=== PATIENT | female | born 1970 | race Asian ===

== ENCOUNTER 2018-01-18 10:56 | Emergency (ER) | payer SELFPAY ==
[~2018-01-18] VITALS: Ht 167.6 cm; Wt 68.0 kg
[2018-01-18] MEDS ORDERED: MULT-1203 PO (11:22)
[2018-01-18 13:56] VITALS: BP 115/71
== END 2018-01-18 13:57 | disposition home or self-care (01) ==
LOC: EMS 10:58
DX: S53.401A Unspecified sprain of right elbow, initial encounter (principal); S00.83XA Contusion of other part of head, initial encounter; S80.212A Abrasion, left knee, initial encounter; L03.113 Cellulitis of right upper limb; W01.10XA Fall on same level from slipping, tripping and stumbling with subsequent striking against unspecified object, initial encounter; Y93.89 Activity, other specified; Y92.89 Other specified places as the place of occurrence of the external cause; Y99.8 Other external cause status
CPT/HCPCS: 99284

== ENCOUNTER 2018-05-31 18:46 | Emergency (ER) | payer SELFPAY ==
[~2018-05-31 18:46] MED LIST: MULT-1203 PO
== END 2018-05-31 22:06 | disposition left against medical advice (07) ==
LOC: EMS 18:46
DX: R10.9 Unspecified abdominal pain (principal); R06.02 Shortness of breath; Z53.21 Procedure and treatment not carried out due to patient leaving prior to being seen by health care provider

== ENCOUNTER 2019-02-19 12:42 | Emergency (ER) | payer SELFPAY ==
[~2019-02-19] VITALS: Ht 165.1 cm; Wt 63.6 kg
[2019-02-19 13:22] LABS: BASOPHILS % (AUTO) 1.1 % (0.0-2.0); EOSINOPHILS % (AUTO) 1.4 % (1.0-6.0); HEMATOCRIT 37.6 % (36-46); HEMOGLOBIN 12.4 g/dL (12.0-16.0); LYMPHOCYTES # (AUTO) 1.3 K/uL (1.0-4.8); LYMPHOCYTES % (AUTO) 13.5 % (22.0-44.0); MEAN CORPUSCULAR HEMOGLOBIN 28.8 pg (26.0-34.0); MEAN CORPUSCULAR VOLUME 87 fL (80-100); MONOCYTES # (AUTO) 0.5 K/uL (0.1-1.0); MONOCYTES % (AUTO) 5.2 % (2.0-9.0); NEUTROPHILS # (AUTO) 7.8 K/uL (1.8-7.7); NEUTROPHILS % (AUTO) 78.8 % (40.0-70.0); PLATELET COUNT (AUTO) 317 K/uL (150-450); RED BLOOD CELL COUNT(AUTO) 4.32 MIL/uL (4.00-5.20); RED CELL DISTRIBUTION WIDTH 13.5 % (11.5-14.5)
[2019-02-19 13:46] LABS: ALANINE AMINOTRANSFERASE 11 U/L (12-78); ALBUMIN 3.6 g/dL (3.4-5.0); ALKALINE PHOSPHATASE 52 U/L (46-116); ANION GAP 9 mmol/L (8-16); ASPARTATE AMINOTRANSFERASE 6 U/L (15-37); BILIRUBIN,TOTAL 0.7 mg/dL (0.1-1.0); CARBON DIOXIDE 26 mmol/L (22-29); CHLORIDE 104 mmol/L (98-107); CREATININE 0.98 mg/dL (0.60-1.30); GLOMERULAR FILTR. RATE CALC > 60 mL/min (>60); GLUCOSE,RANDOM 182 mg/dL (70-110); HCG,QUANTITATIVE < 1 mIU/mL (0-6); POTASSIUM 3.6 mmol/L (3.5-5.1); SODIUM SERUM 139 mmol/L (136-145); UREA NITROGEN, BLOOD 13 mg/dL (7-18)
[2019-02-19 14:16] LABS: CALCIUM, TOTAL 8.3 mg/dL (8.8-10.5); TOTAL PROTEIN, SERUM 6.9 g/dL (6.4-8.2)
[2019-02-19 16:01] VITALS: BP 121/73
== END 2019-02-19 16:38 | disposition home or self-care (01) ==
LOC: EMS 12:43
DX: D25.9 Leiomyoma of uterus, unspecified (principal); N83.202 Unspecified ovarian cyst, left side; R73.9 Hyperglycemia, unspecified; R03.0 Elevated blood-pressure reading, without diagnosis of hypertension; N93.9 Abnormal uterine and vaginal bleeding, unspecified
CPT/HCPCS: 76856